=== PATIENT | female | born 1980 | race Caucasian/White ===

== ENCOUNTER 2019-03-24 20:42 | Emergency (ER) | payer OTHER ==
[~2019-03-24] VITALS: Ht 157.5 cm; Wt 72.6 kg
[2019-03-24] MEDS ORDERED: LIPITOR10 MG PO (21:02)
[2019-03-24] MEDS ORDERED: LEXAPRO20 MG PO (21:02)
[2019-03-24] MEDS ORDERED: ZYRTEC10 M5 PO (21:03)
[2019-03-24] MEDS ORDERED: ESTRADIOL 1 MG T1 M1 PO (21:03)
[2019-03-24 21:40] VITALS: BP 143/86
== END 2019-03-24 21:41 | disposition home or self-care (01) ==
LOC: M.ERS 20:42
DX: S93.402A Sprain of unspecified ligament of left ankle, initial encounter (principal); F32.9 Major depressive disorder, single episode, unspecified; E78.00 Pure hypercholesterolemia, unspecified; Z90.710 Acquired absence of both cervix and uterus; W18.39XA Other fall on same level, initial encounter; Y93.89 Activity, other specified; Y92.89 Other specified places as the place of occurrence of the external cause; Y99.8 Other external cause status